=== PATIENT | male | born 1960 | race Caucasian/White ===

== ENCOUNTER 2018-04-09 16:13 | Inpatient (IN) | payer BC ==
[~2018-04-09] VITALS: Ht 170.2 cm; Wt 87.3 kg
[2018-05-29] VITALS (12 sets, daily range): BP systolic 103–128; BP diastolic 55–86; PULSE 84–102; TEMP 98.8–99.6
[2018-05-29 05:53] LABS: HEMATOCRIT 44.5 % (42.0-52.0); HEMOGLOBIN 15.8 g/dl (13.5-18.0)
[2018-05-29] MEDS ORDERED: SYNTHROID0.1 MG/TAB PO (06:11)
[2018-05-29] MEDS ORDERED: NORVASC 5MG5 MG/TAB PO (06:13)
[2018-05-29] MEDS ORDERED: LIPITOR20 MG PO (06:13)
[2018-05-29 12:59] LABS: HEMOGLOBIN 10.6 g/dl (13.5-18.0)
[2018-05-30 00:24] VITALS: BP 97/61; PULSE 92; TEMP 98
[2018-05-30 03:50] VITALS: BP 106/62; PULSE 91; TEMP 99
[2018-05-30 06:46] LABS: BASO % 0.4 % (0.0-2.0); EOS # 0.1 (0.0-0.7); GRAN # 4.3 (1.4-6.5); HEMATOCRIT 27.1 % (42.0-52.0); HEMOGLOBIN 9.4 g/dl (13.5-18.0); LYMPH % 28.3 % (20.0-51.0); MEAN CELL VOLUME 90 fl (80.0-100.0); MEAN CORPUSCULAR HEMOGLOBIN 31 pg (27.0-31.0); MEAN CORPUSCULAR HGB CONC 35 g/dl (33.0-37.0); MEAN PLATELET VOLUME 9.8 fl (7.4-10.4); MONO # 0.8 (0.1-0.6); PLATELET COUNT 203 K/mm3 (130-400); RED BLOOD COUNT 3.02 M/mm3 (4.20-5.60); REDCELL DISTRIBUTION WIDTH-CV 12.2 % (11.5-14.5)
[2018-05-30 07:01] LABS: CALCIUM 7.2 mg/dL (8.4-10.2); CREATININE, serum 1.02 mg/dL (0.66-1.25); POTASSIUM 3.8 mmol/L (3.4-5.0)
[2018-05-30 07:30] VITALS: BP 115/67; PULSE 95; TEMP 98
[2018-05-30 11:54] VITALS: BP 122/78; PULSE 97; TEMP 98.5
[2018-05-30 16:53] VITALS: BP 125/78; PULSE 97; TEMP 98.5
[2018-05-30 20:00] VITALS: BP 156/89; PULSE 96; TEMP 98.6
[2018-05-31] VITALS (7 sets, daily range): BP systolic 108–146; BP diastolic 69–93; PULSE 84–104; TEMP 97.9–98.8
[2018-06-01 04:09] VITALS: BP 107/35; BP 128/84; PULSE 56; PULSE 90; TEMP 97.7; TEMP 98.5
[2018-06-01 07:52] VITALS: BP 139/91; PULSE 90; TEMP 98.2
[2018-06-01 12:09] VITALS: BP 140/83; PULSE 100; TEMP 98.5
[2018-06-01 15:47] VITALS: BP 132/87; PULSE 111; TEMP 98.3
== END 2018-06-01 19:44 | disposition home or self-care (01) | DRG 708 ==
LOC: INPTSU 05-29 05:09 → SURG 05-29 07:30
PROVIDERS: Nurse Anesthetist, Certified Registered; Urology
PROC: 0VT00ZZ Resection of Prostate, Open Approach (ICD-10-PCS; principal; 2018-05-29 07:30)
PROC: 0YQA0ZZ Repair Bilateral Inguinal Region, Open Approach (ICD-10-PCS; 2018-05-29 07:30)
DX: C61 Malignant neoplasm of prostate (principal); E03.9 Hypothyroidism, unspecified; E78.5 Hyperlipidemia, unspecified; K40.20 Bilateral inguinal hernia, without obstruction or gangrene, not specified as recurrent
CPT/HCPCS: A9284; J0690; J1170; J2250; J2405; J2704; J3010; J3480; J7120